=== PATIENT | male | born 1950 | race Caucasian/White ===

== ENCOUNTER 2021-10-13 07:35 | Observation (INO) | payer OTHER ==
[2021-10-13 08:59] LABS: #Eosinphils 0.2 thou/uL (0.0-0.7); #Lymphocytes 1.1 thou/uL (1.20-3.40); #Monocytes 0.7 thou/uL (0.11-0.59); #Neutrophils 5.7 thou/uL (1.40-6.50); %Basophils 0.1 % (0.0-1.0); %Eosinophils 3.1 % (0.0-10.0); %Lymphocytes 14.5 % (21.0-51.0); %Neutrophils 73.3 % (42.0-75.0); Hemoglobin 16.6 g/dL (14.0-18.0); Mean Corpuscular HGB CONC 32.5 g/dL (32.0-36.0); Mean Corpuscular Hemoglobin 32.9 pg (27.0-31.0); Mean Platelet Volume 7.8 fL (7.4-10.4); Platelet Count 202 thou/uL (130-400); RBC Distribution Width 12.8 % (11.5-14.5); Red Blood Cell (RBC) Count 5.05 mill/uL (4.70-6.10); White Blood Cell (WBC) Count 7.8 thou/uL (4.8-10.8)
[2021-10-13] MEDS ORDERED: Iopamidol-370 76% 500 ML 1 ML ONE (09:11)
[2021-10-13 09:22] LABS: ALT (SGPT) 47 U/L (8-55); AST (SGOT) 66 U/L (5-34); Albumin 3.5 g/dL (3.4-4.8); Alkaline Phosphatase 84 U/L (40-110); Anion Gap 10 mmol/L (10-20); BUN (Urea Nitrogen) 23 mg/dL (8.4-25.7); Bilirubin, Total 1.1 mg/dL (0.2-1.2); Calc. Creatinine Clearance 0 mL/min (70-130); Calcium 9.5 mg/dL (7.8-10.44); Carbon Dioxide 26 mmol/L (23-31); Chloride 104 mmol/L (98-107); Globulin 2.8 g/dL (2.4-3.5); Glucose 91 mg/dL (83-110); Potassium 4.4 mmol/L (3.5-5.1); Protein, Total 6.3 g/dL (5.8-8.1); Sodium 136 mmol/L (136-145)
[2021-10-13 09:43] LABS: PTT 36.2 sec (22.9-36.1); Prothrombin Time 12.9 sec (12.0-14.7)
[2021-10-13] MEDS ORDERED: Aspirin Chewable 81 MG TAB ONE (10:00)
[2021-10-13] MEDS ORDERED: hydrALAZINE 20 MG/ML VIAL SLOW IVP PRN (11:37)
[2021-10-13] MEDS ORDERED: Bisacodyl 5 MG TAB PO PRN (11:37)
[2021-10-13] MEDS ORDERED: Aspirin 81 mg Enteric Coated Tablet PO SCH (11:37)
[2021-10-13] MEDS ORDERED: Ondansetron PF 4 MG/2 ML Vial IVP PRN (11:37)
[2021-10-13 11:46] VITALS: BMI 31.6
[2021-10-13 12:37] LABS: Troponin I 0.013 ng/mL (< 0.028)
[2021-10-13 15:56] LABS: Troponin I 0.011 ng/mL (< 0.028)
[2021-10-13] MEDS: Acetaminophen 325 MG TAB PO PRN (20:53)
[2021-10-14] MEDS ORDERED: Pregabalin 75 MG CAP PO ONE (01:29)
[2021-10-14] MEDS: Acetaminophen 325 MG TAB PO PRN (02:41)
[2021-10-14 05:41] LABS: #Eosinphils 0.2 thou/uL (0.0-0.7); #Lymphocytes 1.5 thou/uL (1.20-3.40); #Monocytes 0.8 thou/uL (0.11-0.59); #Neutrophils 6.4 thou/uL (1.40-6.50); %Basophils 0.4 % (0.0-1.0); %Eosinophils 2.7 % (0.0-10.0); %Lymphocytes 16.9 % (21.0-51.0); %Monocytes 8.6 % (0.0-10.0); %Neutrophils 71.4 % (42.0-75.0); Hemoglobin 16.1 g/dL (14.0-18.0); Mean Corpuscular HGB CONC 32.7 g/dL (32.0-36.0); Mean Corpuscular Hemoglobin 32.8 pg (27.0-31.0); Mean Platelet Volume 7.9 fL (7.4-10.4); Platelet Count 193 thou/uL (130-400); RBC Distribution Width 12.6 % (11.5-14.5); Red Blood Cell (RBC) Count 4.92 mill/uL (4.70-6.10)
[2021-10-14 06:08] LABS: Anion Gap 11 mmol/L (10-20); BUN (Urea Nitrogen) 24 mg/dL (8.4-25.7); Calc. Creatinine Clearance 90 mL/min (70-130); Calcium 9.1 mg/dL (7.8-10.44); Carbon Dioxide 24 mmol/L (23-31); Cardiac Risk 3.9 (Less than 4.5); Chloride 105 mmol/L (98-107); Cholesterol 147 mg/dl (< 200 Desired); Glucose 89 mg/dL (83-110); HDL Cholesterol 38 mg/dL (>60 Neg Risk); LDL Cholesterol, Calculated 95 mg/dL; Potassium 4.2 mmol/L (3.5-5.1); Sodium 136 mmol/L (136-145); Triglycerides 72 mg/dL (Less than 150)
[2021-10-14] MEDS ORDERED: Furosemide 40 MG TAB PO PRN (07:52)
[2021-10-14] MEDS ORDERED: Morphine 2 MG/ML VIAL SLOW IVP SCH (08:00)
[2021-10-14] MEDS ORDERED: Aspirin 325 mg Enteric Coated Tablet PO SCH (09:00)
[2021-10-14] MEDS ORDERED: Bupropion 150 MG XL TAB PO SCH (09:00)
[2021-10-14] MEDS ORDERED: Pregabalin 75 MG CAP PO SCH (09:00)
[2021-10-14] MEDS ORDERED: Enoxaparin Sodium 40 MG/0.4 ML SYRINGE SC SCH (09:00)
[2021-10-14] MEDS ORDERED: Tamsulosin HCl 0.4 MG CAP PO SCH (09:00)
[2021-10-14] MEDS ORDERED: Meloxicam 15 MG TAB PO SCH (09:00)
[2021-10-14] MEDS: Gabapentin 400 MG CAP PO SCH ×2 (09:16→14:59)
[2021-10-14 12:01] VITALS: TEMP 97.9
[2021-10-14 16:09] VITALS: BP 144/76
== END 2021-10-14 16:55 | disposition home or self-care (01) ==
LOC: ERS 07:35 → NEURO 09:46
PROVIDERS: ADMIT Internal Medicine; ATTEND Internal Medicine
DX: R53.1 Weakness (principal); M25.512 Pain in left shoulder; M50.11 Cervical disc disorder with radiculopathy, high cervical region; M47.22 Other spondylosis with radiculopathy, cervical region; J44.9 Chronic obstructive pulmonary disease, unspecified; N40.0 Benign prostatic hyperplasia without lower urinary tract symptoms; G62.9 Polyneuropathy, unspecified; Z20.822 Contact with and (suspected) exposure to COVID-19; Z79.899 Other long term (current) drug therapy
CPT/HCPCS: 70450; 70496; 70498; 70551; 71045; 72141; 73030; 73220; 80048; 80053; 80061; 82962; 84484 ×2; 85025 ×2; 85610; 85730; 93005; 93306; 96372; 96374; 97116; 97139 ×2; 99285; G0378 ×3; J2270; U0003; U0005; 36415; 36416; 93010; J1650; Q9967